=== PATIENT | female | born 1975 | race Caucasian/White ===

== ENCOUNTER → 2017-06-05 | Outpatient (CLI) | payer BC ==
[~2017-06-05] MED LIST: BCP'S; ETHI1TAB21
--- NOTE | 2017-06-05 18:52 | Diagnostic Imaging Report ---
Bilateral screening mammogram 2D views with tomosynthesis The current study was also evaluated with a Computer Aided Detection (CAD) system. Indication: Screening. No current complaints stated on the questionnaire. COMPARISON: None. This is a baseline study. FINDINGS: The breasts are composed of heterogeneously dense parenchyma which may decrease mammographic sensitivity. There are bilateral implants seen. Tomographic evaluation is performed and implant displaced views demonstrate no definite abnormality. The implants are retroglandular and symmetric. IMPRESSION: Dense breasts with no definite focal lesion seen. Annual screening mammograms recommended. ACR BI-RADS Category 2: Benign findings. Result letter will be mailed to the patient. Note: At least 10% of breast cancer is not imaged by mammography. Dictated by: Dictated on workstation # [id number]
== END ==
LOC: RAD 14:10
PROVIDERS: ATTEND Obstetrics & Gynecology
DX: Z12.31 Encounter for screening mammogram for malignant neoplasm of breast (principal)
CPT/HCPCS: 77067

== ENCOUNTER → 2020-07-09 | Outpatient (CLI) | payer BC, OTHER ==
--- NOTE | 2020-07-09 12:06 | Diagnostic Imaging Report ---
Indication: Routine screening. Comparison is made with prior mammogram from 06/05/2017. 2-D and 3-D bilateral screening mammography was performed with CAD. The patient has bilateral breast implants. Implant contours appear to be stable. No definite extracapsular rupture is seen. Breast parenchyma is heterogeneously dense, limiting the sensitivity of mammography. No mass or malignant appearing microcalcifications are seen. Axillae are unremarkable. IMPRESSION: BI-RADS Category 2 No mammographic features suspicious for malignancy are identified. ACR BI-RADS Category 2: Benign findings. Result letter will be mailed to the patient. Note: At least 10% of breast cancer is not imaged by mammography. Dictated by: Dictated on workstation # [id number]
== END ==
LOC: RAD 08:45
PROVIDERS: ATTEND Obstetrics & Gynecology
DX: Z12.31 Encounter for screening mammogram for malignant neoplasm of breast (principal)
CPT/HCPCS: 77063; 77067

== ENCOUNTER → 2021-04-07 | Outpatient (CLI) | payer OTHER | LOC: CARD 08:00 | PROVIDERS: ATTEND Family Medicine | DX: R00.2 Palpitations (principal); Z86.79 Personal history of other diseases of the circulatory system | CPT/HCPCS: 93225; 93226 ==

== ENCOUNTER → 2021-06-15 | Outpatient (CLI) | payer OTHER ==
[2021-06-15 15:49] VITALS: BP 114/76
--- NOTE | 2021-06-15 15:50 | Cardiology Stress Test Report ---
Stress Test Report Date of Procedure/Referring: Date of Procedure: Jun 15, 2021 PCP Yesika Coleman MD Admitting Physician Mik Martinez MD Indications: Palpitation Baseline Heart Rate: 60 Baseline Blood Pressure: Blood Pressure Systolic: 114 Blood Pressure Diastolic: 76 Baseline EKG: Baseline EKG: NSR Summary/Conclusion: Summary: In summary, the patient started exercising with a baseline heart rate, blood pressure and EKG mentioned above Patient was able to exercise for a total of 8 minutes on Zacarias protocol, METs 9.7 Maximum heart rate 164 Maximum blood pressure 170/78 Stress EKG, Minimal nondiagnostic changes Recovery EKG , Return to baseline Conclusion: 1. Good exercise tolerance for a total of 8 minutes on Zacarias protocol, 9.7 METs, achieving 94 percent of maximum expected heart rate 2. Minimal nondiagnostic EKG changes with exercise returned to baseline during recovery 3. No arrhythmia was noted, occasional PVCs noted during recovery YESIKA COLEMAN MD Jun 15, 2021 15:49
== END ==
LOC: CARD 13:00
PROVIDERS: ATTEND Internal Medicine Cardiovascular Disease
DX: I11.9 Hypertensive heart disease without heart failure (principal)
CPT/HCPCS: 93017; 93306